=== PATIENT | female | born 1960 | race African-American/Black ===

== ENCOUNTER 2022-03-07 05:32 | Day surgery (SDC) | payer BC ==
[2022-03-06 09:39] VITALS: BMI 52.4
[2022-03-07] MEDS ORDERED: PROPOFOL 40 ML ONE (07:15)
[2022-03-07] MEDS ORDERED: Lidocaine 1% PF 5 ML VIAL ONE (08:43)
== END 2022-03-07 09:26 | disposition home or self-care (01) ==
LOC: CSHSDC 05:32
PROVIDERS: ATTEND Internal Medicine Gastroenterology
PROC: 0DJD8ZZ Inspection of Lower Intestinal Tract, Via Natural or Artificial Opening Endoscopic (ICD-10-PCS; principal; 2022-03-07)
DX: Z12.11 Encounter for screening for malignant neoplasm of colon (principal); K57.30 Diverticulosis of large intestine without perforation or abscess without bleeding; K64.8 Other hemorrhoids; D64.9 Anemia, unspecified; I10 Essential (primary) hypertension; E66.01 Morbid (severe) obesity due to excess calories; Z79.2 Long term (current) use of antibiotics; Z90.710 Acquired absence of both cervix and uterus
CPT/HCPCS: J2704